=== PATIENT | female | born 1990 | race Caucasian/White ===

== ENCOUNTER 2017-07-22 13:29 | Emergency (ER) | payer OTHER ==
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
[2017-07-22 15:14] VITALS: BP 124/86
== END 2017-07-22 15:18 | disposition home or self-care (01) ==
LOC: ER 13:29
DX: S42.024A Nondisplaced fracture of shaft of right clavicle, initial encounter for closed fracture (principal); G40.409 Other generalized epilepsy and epileptic syndromes, not intractable, without status epilepticus; F17.200 Nicotine dependence, unspecified, uncomplicated; W10.8XXA Fall (on) (from) other stairs and steps, initial encounter; Y93.9 Activity, unspecified; Y92.009 Unspecified place in unspecified non-institutional (private) residence as the place of occurrence of the external cause

== ENCOUNTER 2019-09-19 22:55 | Observation (INO) ==
[2019-09-19] MEDS ORDERED: NORMAL SALINE 1,000 ML IV PRN (23:09)
[2019-09-19 23:26] LABS: Hematocrit 36.1 % (37.0-47.0); Hemoglobin 11.5 gm/dL (12.5-16.0); Mean Cell Volume 95.5 fl (78-100); Mean Corpuscular Hemoglobin 30.4 pg (27-31); Mean Corpuscular Hgb Conc 31.9 g/dl (32-36); Mean Platelet Volume 8.5 fl (8-12.5); Neutrophil # 5.9 K/mm3 (1.3-6.0); Neutrophil % 62.3 % (42-75.0); Platelet Count 354 K/mm3 (150-450); Red Blood Count 3.78 M/mm3 (4.2-5.4); Red Cell Distribution Width 14.6 % (11.5-14.0); White Blood Count 9.4 K/mm3 (4.0-10.5)
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
[2019-09-19 23:53] LABS: Salicylate Less than 2.8 mg/dL (2.8-20.0)
[2019-09-19 23:56] LABS: ALT 20 U/L (19-67); AST 16 U/L (0-48); Albumin * 3.1 gm/dl (3.4-5.0); Alkaline Phosphatase * 100 U/L (50-170); Anion Gap 8.7 mmol/L (6.8-13.8); BUN/Creatinine Ratio 5.1 (9.0-21.6); Bilirubin, Total 0.3 mg/dL (0.0-1.1); Blood Urea Nitrogen 6 mg/dL (3-23); Ca. Corrected For Albumin 8.3 mg/dL (8.4-10.2); Calcium * 7.9 mg/dL (7.9-10.9); Chloride 101 mmol/L (97-106); Glucose * 109 mg/dL (70-110); Potassium 3.7 mmol/L (3.4-4.6); Sodium 137 mmol/L (132-142); TSH * 3.603 uIU/mL (0.358-3.74); Total Protein 6.6 gm/dL (6.2-8.2)
[2019-09-20] MEDS ORDERED: NORMAL SALINE 1,000 ML IV ONE ×2 (00:46→12:16)
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
[2019-09-20] MEDS ORDERED: ALBUTEROL SULFATE 200 PUFF INHALER IH PRN (01:30)
[2019-09-20] MEDS ORDERED: ALBUTEROL SULFATE 2.5 MG/0.5 ML VIAL.NEB IH PRN (01:49)
[2019-09-20 01:52] LABS: Urine Bilirubin Negative (NEGATIVE); Urine Blood Negative /ul (NEGATIVE); Urine Ketone Negative (NEGATIVE); Urine Nitrite Negative (NEGATIVE); Urine Protein Negative (NEGATIVE); Urine Specific Gravity >=1.030 SP.GR. (1.005-1.010); Urine Urobilinogen Normal (NORMAL); Urine pH 5.5 pH (5.0-7.0)
[2019-09-20 01:59] LABS: Urine Appearance Clear (CLEAR); Urine Bacteria None Seen; Urine Color Yellow; Urine RBC None Seen /hpf (0-5); Urine WBC None Seen /hpf (0-5)
[2019-09-20 02:03] LABS: Cocaine Ur Negative (NEGATIVE); Urine Barbiturate Negative (NEGATIVE); Urine Benzodiazepines Negative (NEGATIVE); Urine Opiates Negative (NEGATIVE); Urine PCP Negative (NEGATIVE); Urine THC Negative (NEGATIVE)
[2019-09-20] MEDS ORDERED: BUDESONIDE 0.5 MG/2 ML VIAL.NEB IH ONE (05:13)
[2019-09-20 05:52] LABS: Hematocrit 32.8 % (37.0-47.0); Hemoglobin 10.2 gm/dL (12.5-16.0); Mean Corpuscular Hemoglobin 30.2 pg (27-31); Mean Corpuscular Hgb Conc 31.1 g/dl (32-36); Mean Platelet Volume 8.8 fl (8-12.5); Neutrophil # 3.2 K/mm3 (1.3-6.0); Neutrophil % 46.9 % (42-75.0); Platelet Count 294 K/mm3 (150-450); Red Blood Count 3.38 M/mm3 (4.2-5.4); Red Cell Distribution Width 14.7 % (11.5-14.0); White Blood Count 6.7 K/mm3 (4.0-10.5)
[2019-09-20 06:41] LABS: Albumin * 2.6 gm/dl (3.4-5.0); Anion Gap 9.9 mmol/L (6.8-13.8); BUN/Creatinine Ratio 4.5 (9.0-21.6); Bilirubin, Total 0.3 mg/dL (0.0-1.1); Ca. Corrected For Albumin 8.3 mg/dL (8.4-10.2); Calcium * 7.5 mg/dL (7.9-10.9); Carbon Dioxide 27.1 mmol/L (24-32.6); Total Protein 5.6 gm/dL (6.2-8.2)
[2019-09-20] MEDS ORDERED: BUDESONIDE 0.5 MG/2 ML VIAL.NEB IH SCH ×2 (07:00→09:00)
[2019-09-20] MEDS ORDERED: PHENYTOIN 50 MG TAB.CHEW PO SCH (09:00)
[2019-09-20] MEDS ORDERED: TOPIRAMATE 50 MG TABLET PO SCH (09:00)
[2019-09-20] MEDS ORDERED: ENOXAPARIN SODIUM 40 MG/0.4 ML SYRG SC SCH (09:00)
[2019-09-20] MEDS ORDERED: FLU VACC QS2019-20(6MOS UP)/PF 60 MCG/0.5 ML SYRINGE IM ONE (09:00)
[2019-09-20] MEDS ORDERED: levETIRAcetam 500 MG TABLET PO SCH (09:00)
--- NOTE | 2019-09-20 14:26 | DS ---
(1) Drug overdose Problem: Acute Qualifiers: Encounter type: initial encounter Injury intent: undetermined intent Qualified Code(s): T50.904A - Poisoning by unspecified drugs, medicaments and biological substances, undetermined, initial encounter (2) Atrial fibrillation Problem: Chronic (3) Drug-seeking behavior Problem: Chronic Date of Discharge:: 09/20/19 Description of Stay: 21-year-old female with past medical history of major depressive disorder, anxiety, A. fib, history of CVA, history of nicotine abuse, history of narcotic addiction, and multiple conduct disorders admitted to [facility] for drug overdose with Ambien 10 mg x 4 tablets. Patient took the medication at 9 PM. She states that she must have forgotten that she took the medication and took another dose. She was found by her mother at 10 PM and unarousable and brought to [facility] ER for further evaluation On arrival to the ER extensive work-up was completed and was largely unremarkable. Urine drug screen was negative. Poison control contacted, recommendation were to monitor patient for 8 hours. Patient initially seen in the ER before admission, patient was asleep and difficult to arouse, however her vital signs are stable. This morning mother is at bedside and states that patient has been hospitalized multiple times for behavioral disturbances starting at a young age. She was initially hospitalized involuntarily at the [facility] in the psychiatry department at the age of 17 in 2006 for 72 hours. Followed by another in voluntary hospitalization in [place] psychiatry department in 2009 for 72 hours. Mother states she has been in trouble with the law including stealing cars, and various violations, these other behavioral disturbances or changes that have resulted in hospitalization. Patient states she is only on Paxil for major depressive disorder. Patient is currently not established with a psychiatrist. Patient denies that it was an intentional overdose. Denies previous hospitalization for suicidal ideation or attempted suicide. Patient states she was hospitalized for behavioral changes. Discussed management and the recommendations patient should be placed into inpatient psych, however patient states that she has a child she needs to take care of and therefore cannot go to inpatient psych. Patient did state that she would like to be established with a psychiatrist outpatient. Advised patient I will come back and discuss management, it will be either discharge home today versus inpatient psych. Patient is not agreeable with plan, mother would like patient to be hospitalized. Primary care provider is Alfredo García APN. Telehealth psychiatry consulted. Discussed case with patient. No re commendations for inpatient psych. Will recommend patient immediately follow-up with primary care physician on Sunday and establish with a psychiatrist for psychotherapy and pharmacotherapy. Will recommend patient stay with mother until follow-up appointment with primary care provider and will advise patient to fill out an action plan prior to discharge. Hospitalization was uneventful. Followed recommendations of poison control. Patient fluid resuscitated adequately, QT interval decreased to 107. Recommendations were for QT interval to decrease to less than 100. However there is a significant improvement from 129. Will advise patient to follow-up with an EKG on Sunday with PCP. Will not discharge patient on controlled substance. Procedures Performed: none Results and Findings: Lab Pending Results 09/19/19 23:20: WBC 9.4, RBC 3.78 L, Hgb 11.5 L, Hct 36.1 L, MCV 95.5, MCH 30.4, MCHC 31.9 L, RDW 14.6 H, Plt Count 354, MPV 8.5, Immature Gran % (Auto) 0.20, Immature Gran # (Auto) 0.02, Neutrophils % 62.3, Lymphocytes % 28.7, Monocytes % 7.5, Eosinophils % 1.0, Basophils % 0.3, Nucleated RBC % 0.0, Neutrophils # 5.9, Lymphocytes # 2.71, Monocytes # 0.7, Eosinophils # 0.1, Absolute Basophils 0.0 09/19/19 23:20: Sodium 137, Plasma Sodium 137, Potassium 3.7, Chloride 101, Car bon Dioxide 31.0, Anion Gap 8.7, BUN 6, Creatinine 1.17, Est GFR (Non-Af Amer) 59 L D, BUN/Creatinine Ratio 5.1 L, Random Glucose 109, Calcium 7.9, Calcium Adj for Albumin 8.3 L, Total Bilirubin 0.3, AST 16, ALT 20, Alkaline Phosphatase 100, Total Protein 6.6, Albumin 3.1 L, TSH 3.603, Salicylates Less than 2.8 L, Acetaminophen Less than 0.2 L, Ethyl Alcohol Less than 3.0 09/20/19 01:49: Urine Color Yellow, Urine Appearance Clear, Urine pH 5.5, Ur Specific Hope >=1.030, Urine Protein Negative, Urine Glucose (UA) Negative, Urine Ketones Negative, Urine Blood Negative, Urine Nitrate Negative, Urine Bilirubin Negative, Urine Urobilinogen Normal, Ur Leukocyte Esterase Negative, Urine RBC None seen, Urine WBC None seen, Ur Epithelial Cells None seen, Urine Bacteria None seen, Urine Culture Comments No culture indicated 09/20/19 01:49: Urine Opiates Screen Negative, Barbiturate Screen Negative, Ur Phencyclidine Scrn Negative, Urine Amphetamine Negative, U Benzodiazepines Scrn Negative, Urine Cocaine Screen Negative, Urine Marijuana (THC) Negative 09/20/19 05:00: WBC 6.7 D, RBC 3.38 L, Hgb 10.2 L, Hct 32.8 L, MCV 97.0, MCH 30.2, MCHC 31.1 L, RDW 14.7 H, Plt Count 294, MPV 8.8, Immature Gran % (Auto) 0.10, Immature Gran # (Auto) 0.01, Neutrophils % 46.9, Lymphocytes % 42.1, Monocytes % 8.5, Eosinophils % 1.8, Basophils % 0.6, Nucleated RBC % 0.0, Neutrophils # 3.2, Lymphocytes # 2.83, Monocytes # 0.6, Eosinophils # 0.1, Absolute Basophils 0.0 09/20/19 05:00: Sodium 141, Plasma Sodium 141, Potassium 4.0, Chloride 108 H, Carbon Dioxide 27.1, Anion Gap 9.9, BUN 5, Creatinine 1.12, Est GFR (Non-Af Amer) 62, BUN/Creatinine Ratio 4.5 L, Random Glucose 91, Calcium 7.5 L, Calcium Adj for Albumin 8.3 L, Total Bilirubin 0.3, AST 15, ALT 17 L, Alkaline Phosphatase 84, Total Protein 5.6 L, Albumin 2.6 L Discharge Location: Home Disposition: Home self-care Condition: Fair Discharge Activity: Activity as tolerated Discharge Diet: General/regular food Consultation Done:: TeleHealth Psychiatry with Tiny SALDANA @ [facility] Complete Home Medications List: Complete Home Medication List: albuterol sulfate 90 mcg/actuation aerosol inhaler 2 puff IH Q6H PRN 06/25/18 levETIRAcetam [Keppra] 1,000 mg PO BID #10 tab 01/21/19 gabapentin 800 mg tablet 800 mg PO BID 03/13/19 prazosin 5 mg capsule 5 mg PO HS cap 03/13/19 Phenytoin [Dilantin Chewable Tablet] 50 mg PO QAM 07/03/19 Phenytoin [Dilantin Chewable Tablet] 100 mg PO HS 07/03/19 Diphenhydramine HCl [Nighttime Sleep Aid] 50 mg PO HS 09/20/19 PARoxetine HCL [Paroxetine HCl] 30 mg PO HS 09/20/19
[2019-09-20 14:33] VITALS: BP 117/72
== END 2019-09-20 15:45 | disposition home or self-care (01) ==
LOC: ER 22:55 → SCU 22:55
PROVIDERS: ADMIT Family Medicine; ATTEND Family Medicine
DX: Z76.5 Malingerer [conscious simulation]; T50.904A Poisoning by unspecified drugs, medicaments and biological substances, undetermined, initial encounter; I48.20 Chronic atrial fibrillation, unspecified
CPT/HCPCS: 36415; 80050; 80053; 80307; 81001; 85025; 93005; 94640; 94664; 94762; 96372; 99285; G0378; G0480